=== PATIENT | male | born 1960 | race Caucasian/White ===

== ENCOUNTER → 2018-12-15 14:27 | Outpatient (CLI) | payer MEDICARE, SELFPAY ==
--- NOTE | 2018-12-15 14:32 | MM_ITS ---
PROCEDURE: MM DIG MAMM BI DX W/CAD CLINICAL INDICATION: BREAST PAIN Left breast soreness and swelling with hardness spine the nipple COMPARISON: US BREAST LT COMPLETE from 12/15/2018 TECHNIQUE: Standard CC and MLO images were obtained. R2 CAD reviewed. FINDINGS: Flame shaped asymmetric increased density is present in the left retroareolar region consistent with gynecomastia with some scattered areas of asymmetric density. This is also present in the right retroareolar region to lesser degree. No obvious malignant appearing mass or malignant-appearing microcalcification is evident. There is some nodularity noted in the upper outer aspect and inferior aspect of the left breast. Ultrasound was therefore performed. There is a typical hypoechoic area of tissue echogenicity in the retroareolar region on the left and to lesser degree on the right with hypervascularity consistent with gynecomastia. No cystic or suspicious nodules are evident. IMPRESSION: BI-RAD Category: 2 Benign Finding(s) Follow-up suggested as clinically warranted (A letter has been sent to the patient regarding results of the study.) Dictated by: Herberth Nunn MD 12/15/2018 16:11 Electronically signed by Herberth Nunn MD in [place] 12/15/2018 16:11
== END ==
PROVIDERS: PCP Internal Medicine Adolescent Medicine; Referring Provider Internal Medicine Adolescent Medicine; Visit Provider Internal Medicine Adolescent Medicine
DX: N64.4 Mastodynia (principal); R92.8 Other abnormal and inconclusive findings on diagnostic imaging of breast
CPT/HCPCS: 76641; 77066

== ENCOUNTER 2019-09-11 10:52 | Observation (INO) | payer MEDICARE, SELFPAY ==
--- NOTE | 2019-09-11 | CA_ITS ---
APPROVED REPORT Exam: Exercise Treadmill Technologist: Odessa Oneill Ht: 5 ft 8 in Wt: 235 lbs BSA: 2.19 m2 HR: 58 bpm BP: 154/80 mmHg Indications: Dyspnea on Exertion, Medical History Medications: Gabapentin,,,,, Lisinopril/HCTZ,,,,, BuPROPION,,,,, FeNTANYL Patch,,,,, Stress Test Details Test: Gab HR Resting HR: 68 bpm Max Heart Rate (APMHR): 162 bpm Max HR Achieved: 140 bpm Target HR (85% APMHR): 137 bpm % of APMHR: 86 Recovery HR: 97 bpm BP Resting BP: 154.0/80.0 mmHg Max BP: 208.0/80.0 mmHg Recovery BP: 174.0/85.0 mmHg ECG Clinical Exercise duration: 06:30 min Highest Stage Achieved: Exercise capacity: 7.0 METs Stress ECG Conclusion Resting ECG: Sinus Bradycardia, PAC Patient exercised 6:30 on Gab Protocol. Symptoms: No chest pain. Arrhythmias/Ectopy: None ST-T Changes: 1.[address] depression inferiorly. Conclusion: No chest pain. EKG changes negative for ischemia. Myoview images reported separately. Test Summary REST . . . . . . . Sitting REST . . . . . . . Standing REST 11:29 0.0 0.0 68 . 154/ 80 . . Stage 1 01:00 10.0 1.7 102 . . . . Stage 1 02:00 10.0 1.7 109 . . . . Stage 1 03:00 10.0 1.7 113 . 180/ 74 . . Stage 2 01:00 12.0 2.5 120 . . . . Stage 2 02:00 12.0 2.5 128 . . . . Stage 2 . . . . . . . Myoview Injected Stage 2 03:00 12.0 2.5 132 . . . . Stage 3 00:30 14.0 3.4 137 . . . Stop exercise at 06:30 RECOVERY 01:00 0.0 0.0 127 . 208/ 80 . . RECOVERY 02:00 0.0 0.0 117 . 208/ 80 . . RECOVERY 03:00 0.0 0.0 102 . 162/ 87 . . RECOVERY 04:00 0.0 0.0 68 . 162/ 87 . . RECOVERY 05:00 0.0 0.0 98 . 162/ 87 . . RECOVERY 05:26 0.0 0.0 94 . 174/ 85 . . Electronically signed by : aDyton Tyler, 09/11/2019 18:06:14
--- NOTE | 2019-09-11 10:23 | ECG_ITS ---
APPROVED REPORT Exam: Resting ECG HR:68 bpm ECG Measurements Heart Rate 68 AXES SC 148 P 60 QRSd 90 QRS 30 QT 386 T 35 QTc 410 <Conclusion> Normal sinus rhythm Normal ECG Electronically signed by : Tanner Watson, 09/15/2019 14:20:07
--- NOTE | 2019-09-11 10:37 | CA_ITS ---
APPROVED REPORT EXAM: Comprehensive 2D, Doppler, and color-flow Echocardiogram Veterinary Nurse: Katy Whitaker RVT Ht: 5 ft 8 in Wt: 236lbs BSA: 2.19 BP: 189/90 mmHg Indications: CP,SMOKER,NARVAEZ,HTN,EDEMA,PALPS 2D Dimensions LVOT 2.16 cm (M/F) 1.5-2.5 M-Mode Dimensions RVDd 3.10 cm (0.9-2.6) LVDd 5.21 cm (3.5-5.7) LVDs 2.82 cm (3.5-5.7) IVSd 1.22 cm (0.6-1.1) PWd 0.66 cm (0.6-1.1) EF (Teich) 76.90% FS 45.90% EDV (Teich) 130.10 mL ESV (Teich) 30.10 mL LV Diastology E/A Ratio 1.48 Mitral Valve MV A Velocity 60.00 (40-130 cm/s) Left Ventricle Left atrium is normal size, left ventricle is normal size, there is no concentric left ventricular hypertrophy, visually estimated ejection fraction 55% with no regional wall motion abnormality. Diastolic parameters are within normal range. Right Ventricle Right atrium is normal size, right ventricle is mildly enlarged with normal contractility. Aortic Valve Aortic valve is minimally thickened and fibrosed. There is no aortic stenosis or aortic insufficiency. Mitral Valve Mitral valve is grossly normal, there is mild mitral regurgitation. Tricuspid Valve Tricuspid valve is grossly normal, there is mild tricuspid regurgitation, tricuspid regurgitation jet velocity is inadequate for calculation of the right ventricular systolic pressure. Pulmonic Valve Pulmonic valve is poorly visualized. Great Vessels Aortic root is normal size. Pericardium No significant pericardial effusion noted. Conclusion 1. Normal left ventricular size, preserved left ventricular systolic function, visually estimated ejection fraction 55% with no regional wall motion abnormality, diastolic parameters are within normal range. 2. Mildly enlarged right ventricle with normal contractility. 3. Mild mitral and tricuspid regurgitation. 4. No significant pericardial effusion noted. Electronically signed by : Dayton Tyler, 09/11/2019 18:27:07
[2019-09-11 11:31] VITALS: BMI 35.8
--- NOTE | 2019-09-11 11:35 | PC.NURSE ---
RESPIRATORY CALLED FOR EKG TO BE COMPLETED, SPOKE WITH DONELL
[2019-09-11 11:36] VITALS: BP 178/95; PULSE 72; RESP 19; TEMP 36.6; O2SAT 96
--- NOTE | 2019-09-11 11:37 | PC.NURSE ---
Pt to floor via @ [phone]
[2019-09-11 12:00] VITALS: PULSE 70; O2SAT 96
[2019-09-11 12:03] LABS: Anion Gap 8.4 mEq/L (5-15); Blood Urea Nitrogen 15 mg/dl (9-20); Calcium 9.3 mg/dl (8.4-10.2); Carbon Dioxide 30 mmol/L (22.0-30.0); Chloride 101 mmol/L (98-107); Chol/HDL Ratio 2.9 (1-3.5); Cholesterol 177 mg/dl (140-200); Creatinine Clearance Estimated 174 mL/min (50-200); Estimated Glomerular Filt Rate 116 ml/min (>60); GFR (African American) 140 ML/MIN (>60); Glucose 119 mg/dl (74-100); HDL Cholesterol 61 mg/dl (40-60); Magnesium 1.9 mg/dl (1.6-2.3); Potassium 3.4 mmoL/L (3.5-5.1); Sodium 136 mmol/L (136-145); Triglycerides 55 mg/dl (30-150); VLDL Cholesterol 11 mg/dL (0-40)
--- NOTE | 2019-09-11 12:07 | HMH.HP ---
*Admission Date: 09/11/19 *Chief complaint: Exertional dyspnea and chest tightness *History of present illness: 59-year-old white male came to the office today for his regular checkup, blood pressure evaluation and renewal of his chronic narcotic therapy-fentanyl patch-which he takes for chronic spondylosis, but while in the office discussed with me that he had 3 days of increasing exertional dyspnea, peripheral edema worse after standing and also a feeling of chest tightness over the past couple of days that was relieved with rest. This is a new symptom for him. EKG in the office showed normal sinus rhythm but had left axis deviation and evidence of poor R wave progression. He was admitted to hospital for further evaluation of this exertional/accelerating angina. [facility] History I have reviewed the patient's past medical history: Yes Medical History: Reports:: Hyperlipidemia, Hypertension, MRSA Denies:: Diabetes Mellitus Type 1, Diabetes Mellitus Type 2 *Have you ever received a pneumonia vaccine?: Yes *Have you received a flu vaccine this season?: No Comment:: Chronic back pain - on chronic fentanyl patch for years Other Surgeries: Yes: Appendectomy Fractures: No - *Social History Smoking Status: Current every day smoker Tobacco Type: cigarettes # Packs/Day (cigarettes): 1 Alcohol Intake: former Alcohol Intake Frequency:: a few times a month *Occupational Status:: employed Household Members: family *Travel in the last 8 weeks: None Family Hx:: No significant family history Review of Systems - Review of Systems Review of systems:: pertinent systems reviewed and negative unless documented below Meds Home Medications Medication Instructions Recorded Confirmed Type Gabapentin [Gabapentin 300mg Cap] 300 mg PO TID 09/11/19 09/11/19 History Lisinopril/Hydrochlorothiazide 1 tab PO DAILY 09/11/19 09/11/19 History [Lisinopril-Hctz 20-25 mg Tab*] buPROPion HCL [Wellbutrin SR 150mg 150 mg PO DAILY 09/11/19 09/11/19 History Tablet] fentaNYL 75mcg Patch 75 mcg TOPICAL DIRECTED 09/11/19 09/11/19 History Allergies Allergy/AdvReac Type Severity Reaction Status Date / Time hydroxyzine [From Vistaril] AdvReac Nightmare Verified 09/11/19 11:43 Exam Vital signs and Labs for Last 24 Hours: Temp Pulse Resp BP Pulse Ox 97.9 F 72 19 178/95 H 96 09/11/19 11:36 09/11/19 11:36 09/11/19 11:36 09/11/19 11:36 09/11/19 11:36 I & O for Last 24 hours: Intake & Output 09/09/19 09/10/19 09/11/19 09/12/19 11:59 11:59 11:59 11:59 Weight 235 lb 6 oz - *Routine HEENT Exam Head: Present: normocephalic Eye: Present: EOMI, PERRL ENT: Present: mucous membranes moist - *Routine Neck Exam Present: supple. Absent: lymphadenopathy - *Routine Respiratory Exam Present: CTA bilaterally - *Routine Cardiovascular Exam Present: RRR - *Routine Abdominal Exam Present: soft, normoactive bowel sounds. Absent: tenderness - *Routine Extremities Exam Absent: cyanosis, clubbing, edema - *Routine Skin Exam Present: warm. Absent: rash - *Routine Neurological Exam Present: alert, oriented X3 Assessment and Plan (1) Exertional angina Current visit: Yes Status: Acute Category: Medical Code(s): I20.8 - Other forms of angina pectoris Admit... high risk patient.. enzymes and cards eval (2) Hypertension Current visit: Yes Status: Acute Category: Medical Code(s): I10 - Essential (primary) hypertension Up in office... observe in hospital. (3) Depression Current visit: Yes Status: Acute Category: Medical Code(s): F32.9 - Major depressive disorder, single episode, unspecified Complicates all aspects of his care (4) Opioid dependence Current visit: Yes Status: Acute Category: Medical Code(s): F11.20 - Opioid dependence, uncomplicated (5) Spondylolisthesis Current visit: Yes Status: Acute Category: Medical Code(s): M43.10 - Spondylolisthesis, site unspecified C
[2019-09-11 12:14] LABS: Direct LDL Cholesterol 121.69 mg/dL (100-129)
[2019-09-11 12:16] LABS: Troponin I < 0.01 ng/ml (0.00-0.034)
[2019-09-11 12:38] LABS: Basophils % 0.5 % (0.1-2.0); Eosinophils % 0.5 % (0.1-12.0); Hematocrit 41.5 % (42.0-52.0); Hemoglobin 13.6 g/dL (14.1-18.0); Lymphocytes # 1.2 K/mm3 (0.7-4.5); Lymphocytes % 17.9 % (10-50); Mean Corpuscular HGB Conc 32.9 g/dL (31.8-35.4); Mean Corpuscular Hemoglobin 32.9 pg (27.0-31.2); Mean Platelet Volume 7.7 fl (7.4-10.4); Monocytes # 0.4 K/mm3 (0.1-1.0); Monocytes % 5.8 % (1.7-9.3); Neutrophils # 4.9 K/mm3 (1.8-7.8); Neutrophils % 75.3 % (37.0-80.0); Platelet Count 197 K/mm3 (142-424); Red Blood Count 4.15 M/mm3 (4.60-6.20); Red Cell Distribution Width 14.5 % (11.5-17.5); White Blood Count 6.4 K/mm3 (4.8-10.8)
--- NOTE | 2019-09-11 13:00 | PC.NURSE ---
PT OFF FLOOR FOR STRESS TEST
--- NOTE | 2019-09-11 13:30 | HMH.PHAVTE ---
[facility] Pharmacy VTE Monitoring - Patient Demographics Admission date: 09/11/19 Report Date: 09/11/19 Time: 13:30 Allergies/Adverse Reactions: Patient Allergies hydroxyzine [From Vistaril] Adverse Reaction (Verified 09/11/19 11:43) Nightmare Height: 1.73 m Weight: 106.764 kg Patient Problems: Current Active Problems Exertional angina (Acute) Hypertension (Acute) Depression (Acute) Opioid dependence (Acute) Spondylolisthesis (Acute) - VTE Risk Labs: VTE Related Lab Results Hgb 13.6 g/dL (14.1-18.0) L 09/11/19 11:40 Hct 41.5 % (42.0-52.0) L 09/11/19 11:40 Plt Count 197 K/mm3 (142-424) 09/11/19 11:40 BUN 15 mg/dl (9-20) 09/11/19 11:40 Creatinine 0.70 mg/dl (0.66-1.25) 09/11/19 11:40 Estimated Creat Clear 174 mL/min (50-200) 09/11/19 11:40 VTE Score: 3 VTE Risk Level: Low Risk - Prophylaxis VTE Prophylaxis Ordered?: Yes Types of VTE Prophylaxis: TEDS Knee High Location of Applied Device: Bilateral Lower Extremeties
--- NOTE | 2019-09-11 13:31 | NM_ITS ---
APPROVED REPORT Exam: Nuclear Stress Test Indication: Chest pain, SOB, Fatigue, HTN, Tobacco use, Family history Patient Location: Inpatient Stress Tech: Odessa Oneill NM Tech:Zena Tang, ARRT, RT (R)(N) Ht: 5 ft 8 in Wt: 235 lbs HR: 58 bpm BP: 154/80 mmHg BSA: 2.19 m2 BMI: 35.7 History: Chest pain, SOB, Fatigue, HTN, Tobacco use, Family history Procedure: Patient exercised on Gab protocol 6:30 minutes and sec, resting heart rate 58 bpm, resting blood pressure 154/80 mmHg, with exercise maximum heart rate achived was 140 bpm which is Greater than 85 % of the maximum predicted heart rate and blood pressure was 208/80 mmHg. Test was stopped due to SOB. Patient denied any complaint of chest pain. Patient has Adequate exercise capacity, achieved 7.0 METs of workload on treadmill, the blood pressure response to exercise was Hypertensive. Electrocardiogram Resting electrocardiogram showed sinus rhythm, with exercise there is less than 1.[address] segment depression noted from the baseline EKG. The EKG portion of the exercise Myoview is negative for ischemia. Cardiac Stress and Resting SPECT Images: Cardiac Stress and Resting SPECT images were obtained using technetium 99m Myoview 32.8 mCi stress and 10.20 mCi at rest. Gated SPECT for the analysis of segmental wall motion and calculation of the ejection fraction also done. Cardiac stress and resting SPECT images show mild defect in the anterior wall with normal contractility to SPECT is likely secondary to soft tissue attenuation, no reversible ischemia seen. Computer derived ejection fraction is 62% with no regional wall motion abnormality, right ventricle is normal size and contractility. Conclusion: 1. The EKG portion of the exercise Myoview is negative for ischemia, patient has adequate exercise capacity achieved 7 mets of workload on treadmill, the blood pressure response to exercise was hypertensive, there was no exercise-induced chest discomfort, test was stopped due to shortness of breath. 2. No scintigraphic evidence of reversible ischemia seen at this level of exercise, computer derived ejection fraction is 62% with no regional wall motion abnormality, right ventricle is normal size and contractility. 3. Likely normal exercise Myoview study. Electronically signed by : Dayton Tyler, 09/11/2019 18:08:45
--- NOTE | 2019-09-11 13:31 | HMH.CNCARD ---
History of Present Illness Consult date: 09/11/19 Requesting physician: Tanner Watson Consult reason: shortness of breath Chief complaint: NARVAEZ, chest tightness Additional Medical History:: 1. Tobacco use, continued, 1 pack/day, 40 years 2. Hypertension 3. Chronic back pain secondary to spondylosis for which she is a chronic fentanyl patch 4. Hyperlipidemia 5. 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 This is a new symptom for him. EKG in the office showed normal sinus rhythm but had left axis deviation and evidence of poor R wave progression. He was admitted to hospital for further evaluation of this exertional/accelerating angina. The above per Dr. Watson Patient does confirm above account of dyspnea on exertion and chest discomfort/tightness. He denies any chest pain or radiation of symptoms. He denies any recent fever, chills, nausea, vomiting or diaphoresis. He does smoke about a pack a day. He denies being a diabetic. He does relate a significant family history of heart disease in his parents. [facility] History Medical History: Reports:: Hyperlipidemia, Hypertension, MRSA Denies:: Diabetes Mellitus Type 1, Diabetes Mellitus Type 2 *Have you ever received a pneumonia vaccine?: Yes *Have you received a flu vaccine this season?: No Other Surgeries: Yes: Appendectomy Fractures: No - *Social History Smoking Status: Current every day smoker Tobacco Type: cigarettes # Packs/Day (cigarettes): 1 Alcohol Intake: former Alcohol Intake Frequency:: a few times a month *Occupational Status:: employed Household Members: family *Travel in the last 8 weeks: None Family Hx:: No significant family history Meds Home Medications Medication Instructions Recorded Confirmed Type Gabapentin [Gabapentin 300mg Cap] 300 mg PO TID 09/11/19 09/11/19 History Lisinopril/Hydrochlorothiazide 1 tab PO DAILY 09/11/19 09/11/19 History [Lisinopril-Hctz 20-25 mg Tab*] buPROPion HCL [Wellbutrin SR 150mg 150 mg PO DAILY 09/11/19 09/11/19 History Tablet] fentaNYL 75mcg Patch 75 mcg TOPICAL DIRECTED 09/11/19 09/11/19 History Allergies Allergy/AdvReac Type Severity Reaction Status Date / Time hydroxyzine [From Vistaril] AdvReac Nightmare Verified 09/11/19 11:43 Review of Systems - Review of Systems Review of systems:: pertinent systems reviewed and negative unless documented below - *Cardiovascular Reports chest pain with activity, Reports shortness of breath with activity - *Respiratory Reports shortness of breath with activity - *Gastrointestinal Denies loose stools, Denies nausea, Denies vomiting - *Genitourinary Denies blood in urine - *Musculoskeletal Reports joint pain, Reports back pain - *Neurologic Reports weakness, Denies lack of coordination, Denies loss of vision, Denies fainting Exam Vital signs and Labs for Last 24 Hours: Temp Pulse Resp BP Pulse Ox 97.9 F 70 19 178/95 H 96 09/11/19 11:36 09/11/19 12:00 09/11/19 11:36 09/11/19 11:36 09/11/19 12:00 Laboratory Results - last 24 hr 09/11/19 11:40: Triglycerides 55, Cholesterol 177, LDL Cholesterol Direct 121.69, VLDL Cholesterol 11, HDL Cholesterol 61 H, Cholesterol/HDL Ratio 2.9 09/11/19 11:40: WBC 6.4, RBC 4.15 L, Hgb 13.6 L, Hct 41.5 L, MCV 100.0 H, MCH 32.9 H, MCHC 32.9, RDW 14.5, Plt Count 197, MPV 7.7, Neut % (Auto) 75.3, Lymph % (Auto) 17.9, [place] % (Auto) 5.8, Eos % (Auto) 0.5, Baso % (Auto) 0.5, Neut # (Auto) 4.9, Lymph # (Auto) 1.2, [place] # (Auto) 0.4, Eos #
--- NOTE | 2019-09-11 14:02 | PC.NURSE ---
PT REMAINS OFF FLOOR AT THIS TIME FOR STRESS TEST
--- NOTE | 2019-09-11 15:00 | PC.NURSE ---
pt returned from stress test at this time per wheelchair.
[2019-09-11 15:51] LABS: Troponin I < 0.01 ng/ml (0.00-0.034)
[2019-09-11 16:00] VITALS: BP 114/54; PULSE 66; PULSE 90; RESP 18; TEMP 36.8; O2SAT 94
--- NOTE | 2019-09-11 16:36 | PC.NURSE ---
PT HAS RESTED WELL SINCE ADMISSION. A&O X 4. NO ACUTE CHANGES. VITALS SIGNS STABLE. BLOOD PRESSURE IMPROVED. PT DENIES ANY CHEST PAIN OR PRESSURE. NO SHORTNESS OF AIR, NO DIZZINESS OR PAIN. IV PATENT. LUNGS CTAB. BOWELS SOUNDS ACTIVE X 4 QUADS. AMBULATES TO BATHROOM WITHOUT DIFFICULTY. NO NEEDS OR CONCERNS AT THIS TIME. CALL LIGHT WITHIN REACH, WILL CONTINUE TO MONITOR
[2019-09-11 17:17] LABS: Troponin I < 0.01 ng/ml (0.00-0.034)
--- NOTE | 2019-09-11 18:49 | PC.NURSE ---
DR. OCHOA CALLED TO CHECK ON PT, UPDATED ON STATUS, REPORTED B/P 121/70. ORDERS FOR LASIX 20MG IV X 1 DOSE NOW AND BMP IN AM. R/V. WILL SEE PT IN AM FOR POSSIBLE DISCHARGE
[2019-09-11 19:21] VITALS: BP 119/65; PULSE 62; RESP 16; TEMP 36.7; O2SAT 92
[2019-09-11 20:00] VITALS: PULSE 70; O2SAT 92
[2019-09-11 20:32] LABS: Troponin I < 0.01 ng/ml (0.00-0.034)
[2019-09-11 22:48] LABS: Troponin I < 0.01 ng/ml (0.00-0.034)
[2019-09-12] VITALS: BP 121/70; PULSE 60; PULSE 62; RESP 18; TEMP 36.8; O2SAT 91
--- NOTE | 2019-09-12 01:44 | PC.NURSE ---
He is awake at this time. Has slept periodically. Denies pain, shortness of air, dizziness, and weakness. He has been voiding per the urinal. Urine is yellow, clear. Amounts recorded in I&Os. NSR on telemetry.
[2019-09-12 04:00] VITALS: BP 128/80; PULSE 60; PULSE 64; RESP 18; TEMP 36.4; O2SAT 94
[2019-09-12 05:12] VITALS: BMI 35.5
[2019-09-12 07:02] LABS: Chloride 101 mmol/L (98-107); Potassium 3.7 mmoL/L (3.5-5.1); Sodium 137 mmol/L (136-145)
[2019-09-12 07:05] LABS: Anion Gap 8.7 mEq/L (5-15); Blood Urea Nitrogen 12 mg/dl (9-20); Calcium 8.5 mg/dl (8.4-10.2); Carbon Dioxide 31 mmol/L (22.0-30.0); Creatinine Clearance Estimated 173 mL/min (50-200); Estimated Glomerular Filt Rate 116 ml/min (>60); GFR (African American) 140 ML/MIN (>60); Glucose 107 mg/dl (74-100)
[2019-09-12 08:00] VITALS: BP 147/91; PULSE 68; PULSE 70; RESP 17; TEMP 36.6; O2SAT 96; O2SAT 98
--- NOTE | 2019-09-12 08:03 | HMH.DCSUM ---
General - General Admission date:: 09/11/19 Discharge date: 09/12/19 HPI HPI: 59-year-old white male came to the office today for his regular checkup, blood pressure evaluation and renewal of his chronic narcotic therapy-fentanyl patch-which he takes for chronic spondylosis, but while in the office discussed with me that he had 3 days of increasing exertional dyspnea, peripheral edema worse after standing and also a feeling of chest tightness over the past couple of days that was relieved with rest. This is a new symptom for him. EKG in the office showed normal sinus rhythm but had left axis deviation and evidence of poor R wave progression. He was admitted to hospital for further evaluation of this exertional/accelerating angina. Hospital Course Hospital Course: Patient was admitted, ruled out for MN, echocardiogram was acceptable. Myoview testing also was acceptable and had no issues with her Maria or other types of ischemia with good ejection fraction. Patient's hypertension was treated with Norvasc and he did well with this, he was given IV Lasix overnight and he also felt much better after some diuresis. This morning exam had normalized including his blood pressure and edema. Plan will be to discharge patient with the addition of Norvasc and Lasix to his blood pressure regimen. I will see him in my office in 2 weeks. Objective Vital signs: Temp Pulse Resp BP Pulse Ox 97.6 F 64 18 128/80 94 L 09/12/19 04:00 09/12/19 04:00 09/12/19 04:00 09/12/19 04:00 09/12/19 04:00 no acute distress - *Routine HEENT Exam Head: Present: normocephalic Eye: Present: EOMI, PERRL ENT: Present: mucous membranes moist - *Routine Neck Exam Present: supple - *Routine Respiratory Exam Present: CTA bilaterally - *Routine Cardiovascular Exam Present: RRR - *Routine Abdominal Exam Present: soft, normoactive bowel sounds. Absent: tenderness - *Routine Extremities Exam Absent: cyanosis, clubbing, edema - *Routine Skin Exam Present: warm. Absent: rash - Detailed Eye Exam Eyelids: Bilateral normal inspection Results Labs on day of discharge: Labs from last 24 hours 09/12/19 09/11/19 09/11/19 06:08 22:20 19:48 WBC RBC Hgb Hct MCV MCH MCHC RDW Plt Count MPV Neut % (Auto) Lymph % (Auto) [place] % (Auto) Eos % (Auto) Baso % (Auto) Neut # (Auto) Lymph # (Auto) [place] # (Auto) Eos # (Auto) Baso # (Auto) Sodium 137 Potassium 3.7 Chloride 101 Carbon Dioxide 31 H Anion Gap 8.7 BUN 12 Creatinine 0.70 Estimated Creat Clear 173 Estimated GFR 116 Est GFR ( Amer) 140 Glucose 107 H Calcium 8.5 Magnesium Troponin I < 0.01 < 0.01 Triglycerides Cholesterol LDL Cholesterol Direct VLDL Cholesterol HDL Cholesterol Cholesterol/HDL Ratio 09/11/19 09/11/19 09/11/19 16:42 15:15 11:40 WBC RBC Hgb Hct MCV MCH MCHC RDW Plt Count MPV Neut % (Auto) Lymph % (Auto) [place] % (Auto) Eos % (Auto) Baso % (Auto) Neut # (Auto) Lymph # (Auto) [place] # (Auto) Eos # (Auto) Baso # (Auto) Sodium 136 Potassium 3.4 L Chloride 101 Carbon Dioxide 30 Anion Gap 8.4 BUN 15 Creatinine 0.70 Estimated Creat Clear 174 Estimated GFR 116 Est GFR ( Amer) 140 Glucose 119 H Calcium 9.3 Magnesium 1.9 Troponin I < 0.01 < 0.01 < 0.01 Triglycerides Cholesterol LDL Cholesterol Direct VLDL Cholesterol HDL Cholesterol Cholesterol/HDL Ratio 09/11/19 09/11/19 11:40 11:40 WBC 6.4 RBC 4.15 L Hgb 13.6 L Hct 41.5 L MCV 100.0 H MCH 32.9 H MCHC 32.9 RDW 14.5 Plt Count 197 MPV 7.7 Neut % (Auto) 75.3 Lymph % (Auto) 17.9 [place] % (Auto) 5.8 Eos % (Auto) 0.5 Baso % (Auto) 0.5 Neut # (Auto) 4.9 Lymph # (Auto) 1.2 [place] #
== END 2019-09-12 10:25 | disposition home or self-care (01) ==
PROVIDERS: Admitting Provider Internal Medicine Adolescent Medicine; PCP Internal Medicine Adolescent Medicine; Visit Provider Internal Medicine Adolescent Medicine
DX: R07.9 Chest pain, unspecified (principal); I20.8 Other forms of angina pectoris; I10 Essential (primary) hypertension; Z72.0 Tobacco use; E78.5 Hyperlipidemia, unspecified; Z79.891 Long term (current) use of opiate analgesic; Z79.899 Other long term (current) drug therapy; M43.10 Spondylolisthesis, site unspecified; G89.29 Other chronic pain; M54.9 Dorsalgia, unspecified
CPT/HCPCS: G0379; 36415; 78452; 80048; 80061; 83735; 84484; 85025; 93005; 93017; 93306; A9502; G0378